=== PATIENT | female | born 1945 | race Caucasian/White ===

== ENCOUNTER 2018-12-29 06:54 | Day surgery (SDC) | payer OTHER, BC ==
[2018-12-15 08:39] VITALS: BMI 41.5
[2018-12-29] MEDS ORDERED: PROPOFOL 20 ML ONE ×3 (08:02)
[2018-12-29] MEDS ORDERED: LIDOCAINE HCL/PF 2% SDV 5ML VIAL ONE (08:03)
[2018-12-29 09:11] VITALS: TEMP 97.8
[2018-12-29 09:48] VITALS: BP 139/54; PULSE 86
--- NOTE | 2019-01-01 15:26 | PATH ---
Surgical Pathology Report Patient Name: ADRIAN MÉNDEZ [facility]. Rec. #: [id number] /Age/Gender: 1945 (Age: 73) / F Account: [id number] Location: [id number] Taken: 12/29/2018 Received: 12/29/2018 Reported: 01/01/2019 Physicians: Dominique Irby M.D. Specimen(s) Received A: CECAL POLYP B: ASCENDING COLON POLYP C: TRANSVERSE COLON POLYP D: DESCENDING COLON POLYP E: SIGMOID COLON POLYPS X 3 F: RECTAL SIGMOID POLYPS X 4 G: DUODENUM H: ANTRUM I: BODY OF STOMACH J: DISTAL ESOPHAGUS Clinical History Anemia, GERD Postoperative diagnosis: Polyps and diverticulosis Final Diagnosis A. CECAL POLYP, POLYPECTOMY: TUBULAR ADENOMA. B. ASCENDING COLON POLYP, BIOPSY: POLYPOID COLONIC MUCOSA WITH NO SIGNIFICANT PATHOLOGIC CHANGES. C. TRANSVERSE COLON POLYP, BIOPSY: COLONIC MUCOSA WITH FOCAL SURFACE HYPERPLASTIC CHANGE.. D. DESCENDING COLON POLYP, POLYPECTOMY: TUBULAR ADENOMA, ONE FRAGMENT. SEPARATE HYPERPLASTIC POLYP, ONE FRAGMENT. E. SIGMOID COLON POLYPS X 3, POLYPECTOMY: HYPERPLASTIC POLYP, THREE FRAGMENTS. F. RECTOSIGMOID POLYPS X 4, POLYPECTOMY: HYPERPLASTIC POLYP, FOUR FRAGMENTS. G. DUODENUM, BIOPSY: DUODENAL MUCOSA WITH NO DIAGNOSTIC ABNORMALITIES. NO HISTOLOGIC EVIDENCE OF CELIAC DISEASE. H. ANTRUM, BIOPSY: GASTRIC MUCOSA WITH CHRONIC GASTRITIS AND INTESTINAL METAPLASIA. IMMUNOSTAIN FOR H. PYLORI IS NEGATIVE. I. BODY OF STOMACH, BIOPSY: GASTRIC MUCOSA WITH NO DIAGNOSTIC ABNORMALITIES. NEGATIVE FOR INTESTINAL METAPLASIA. IMMUNOSTAIN FOR H. PYLORI IS NEGATIVE. J. DISTAL ESOPHAGUS, BIOPSY: ESOPHAGEAL MUCOSA WITH CHANGES CONSISTENT WITH REFLUX ESOPHAGITIS. NEGATIVE FOR INTESTINAL METAPLASIA. Electronically Signed Suellen Curry M.D. Gross Description A. Received in formalin, labeled "cecal polyp" is a gill, irregular portion of soft tissue measuring 0.5 cm. in greatest dimension. The specimen is submitted in toto in one cassette. B. Received in formalin, labeled "ascending colon polyp" are 2 gill, irregular portions of soft tissue measuring 0.1 and 0.3 cm. in greatest dimension. The specimens are submitted in toto in one cassette. C. Received in formalin, labeled "transverse colon polyp" is a gill, irregular portion of soft tissue measuring 0.4 cm. in greatest dimension. The specimen is submitted in toto in one cassette. D. Received in formalin, labeled "descending colon polyp" are 2 gill, irregular portions of soft tissue measuring 0.5 and 0.6 cm. in greatest dimension. The specimens are submitted in toto in one cassette. E. Received in formalin, labeled "sigmoid colon polyps" are 3 gill, polypoid portions of soft tissue ranging from 0.8-1.0 cm. in greatest dimension. The specimens are submitted in toto in one cassette. F. Received in formalin, labeled "rectosigmoid polyps" are 4 gill, polypoid portions of soft tissue ranging from 0.5-1.0 cm. in greatest dimension. The specimens are submitted in toto in one cassette. G. Received in formalin, labeled "duodenum" are 3 gill, irregular portions of soft tissue ranging from 0.3-0.5 cm. in greatest dimension. The specimens are submitted in toto in one cassette. H. Received in formalin, labeled "antrum" is a gill, irregular portion of soft tissue measuring 0.5 cm. in greatest dimension. The specimen is submitted in toto in one cassette. I. Received in formalin, labeled "body of stomach" are 2 gill, irregular portions of soft tissue measuring 0.3 and 0.5 cm. in greatest dimension. The specimens are submitted in toto in one cassette. J. Received in formalin, labeled "distal esophagus" is a gill, irregular portion of soft tissue measuring 0.4 cm. in greatest dimension. The specimen is submitted in toto in one cassette. 12/29/2018 saudi12/29/2018
== END 2018-12-29 09:45 | disposition home or self-care (01) ==
LOC: FASU-ENDO 06:54
PROVIDERS: ATTEND Internal Medicine
PROC: 0DBL8ZX Excision of Transverse Colon, Via Natural or Artificial Opening Endoscopic, Diagnostic (ICD-10-PCS; 2018-12-29)
PROC: 0DBN8ZX Excision of Sigmoid Colon, Via Natural or Artificial Opening Endoscopic, Diagnostic (ICD-10-PCS; 2018-12-29)
PROC: 0DBH8ZX Excision of Cecum, Via Natural or Artificial Opening Endoscopic, Diagnostic (ICD-10-PCS; 2018-12-29)
PROC: 0DB98ZX Excision of Duodenum, Via Natural or Artificial Opening Endoscopic, Diagnostic (ICD-10-PCS; 2018-12-29)
PROC: 0DB68ZX Excision of Stomach, Via Natural or Artificial Opening Endoscopic, Diagnostic (ICD-10-PCS; 2018-12-29)
PROC: 0DB48ZX Excision of Esophagogastric Junction, Via Natural or Artificial Opening Endoscopic, Diagnostic (ICD-10-PCS; 2018-12-29)
PROC: 0DBM8ZX Excision of Descending Colon, Via Natural or Artificial Opening Endoscopic, Diagnostic (ICD-10-PCS; principal; 2018-12-29 08:07)
DX: D50.9 Iron deficiency anemia, unspecified (principal); D12.0 Benign neoplasm of cecum; D12.2 Benign neoplasm of ascending colon; D12.3 Benign neoplasm of transverse colon; K63.5 Polyp of colon; K29.50 Unspecified chronic gastritis without bleeding; K21.0 Gastro-esophageal reflux disease with esophagitis; K57.30 Diverticulosis of large intestine without perforation or abscess without bleeding; K64.4 Residual hemorrhoidal skin tags
CPT/HCPCS: 82962; 88305-TC; 88342-TC